=== PATIENT | male | born 1995 | race Caucasian/White ===

== ENCOUNTER 2020-05-23 10:56 | Emergency (ER) | payer OTHER ==
[~2020-05-23] VITALS: Ht 195.6 cm; Wt 99.3 kg
[2020-05-23] MEDS ORDERED: LORAZEPAM INJ 2 MG/ML VIAL IV ONE (11:30)
[2020-05-23] MEDS ORDERED: SODIUM CHLORIDE 0.9% 1000ML 1,000 ML IV STA (11:35)
[2020-05-23] MEDS ORDERED: ONDANSETRON HCL INJ 2MG/ML 2ML 2 MG/ML VIAL ONE (11:44)
[2020-05-23] MEDS ORDERED: SODIUM CHLORIDE 0.9% 1000ML 1,000 ML ONE (11:45)
--- NOTE | 2020-05-23 12:25 | Emergency Department Note ---
History of Present Illnes History of Present Illness Chief Complaint: rizo/n/v/shaking/ anxiety attack History of Present Illness This is a 24 year old male. was doing well prior to this. then woke up stressed out, massive rizo, n/v, shaking, anxiety attack Historian: Patient Arrival Mode: Car History limited by: condition of the patient (normal) Mems Process Engineer Required: No Onset (how long ago): hour(s) (5) Location: generalize Quality: sharp Radiation: Reports non-radiation Severity: severe Onset quality: sudden Duration (how long): hour(s) (5) Timing of current episode: constant Progression: unchanged Chronicity: recurrent (anxiety attack) Context: Denies recent illness, Denies recent surgery, Denies recent immobilization, Denies recent travel, Denies trauma/injury, Denies new medications, Denies hx of DVT/PE, Denies non-compliance w/ medications Relieving factors: none Exacerbating factors: none Associated symptoms: Reports headaches, Reports nausea/vomiting, Reports other (lightheadedness) Treatments prior to arrival: none Past Medical/Family History Physician Review I have reviewed the patient's past medical and family history. Any updates have been documented here. Past Medical History Recent Fever: No Clinical Suspicion of Infectio: No New/Unexplained Change in Ment: No Other Medical History: anxiety Past Surgical History: None Social History Smoking Cessation: Never Smoker Counseling Performed: No Any Illegal Drug Use: No TB Exposure/Symptoms: No Physically hurt or threatened: No Family History Family history of heart diseas: No Other Any Pre-Existing Lines (PICC,: No Is patient up to date on immun: No Review of Systems Review of Systems Constitutional: Reports no symptoms EENTM: Reports no symptoms Cardiovascular: Reports no symptoms Respiratory: Reports no symptoms Gastrointestinal: Reports as per HPI Genitourinary: Reports no symptoms Musculoskeletal: Reports no symptoms Integumentary: Reports no symptoms Neurological: Reports as per HPI, Reports headache Psychological: Reports as per HPI, Reports anxiety Endocrine: Reports no symptoms Hematological/Lymphatic: Reports no symptoms Review of other systems: All other systems negative Physical Exam Related Data Allergies: Coded Allergies: No Known Allergies (Unverified , 05/23/20) Vital signs reviewed: Yes Physical Exam CONSTITUTIONAL Constitutional: Present well-developed, Present well-nourished, Present other (very anxious) HENT HENT: Present normocephalic, Present atraumatic, Present oropharynx clear/m oist, Present nose normal HENT L/R: Present left ext ear normal, Present right ext ear normal EYES Eyes: Reports PERRL, Reports conjunctivae normal NECK Neck: Present ROM normal, Present supple PULMONARY Pulmonary: Present effort normal, Present breath sounds normal CARDIOVASCULAR Cardiovascular: Present regular rhythm, Present heart sounds normal, Present capillary refill normal, Present normal rate GASTROINTESTINAL Abdominal: Present soft, Present nontender, Present bowel sounds normal GENITOURINARY Genitourinary: Present exam deferred SKIN Skin: Present warm, Present dry MUSCULOSKELETAL Musculoskeletal: Present ROM normal NEUROLOGICAL Neurological: Present alert, Present oriented x 3, Present no gross motor or sensory deficits PSYCHOLOGICAL Psychological: Present judgement normal, Present other (very anxious) Results Laboratory Lab results reviewed: Yes (CMP NORMAL) Laboratory comments cmp normal Imaging Imaging results reviewed: Yes Impressions [place] [address] Patient Name: FRANCIS LA MR #: [id number] : 1995 Age/Sex: 24/M Req #: [id number] Adm Physician: Ordered by: CY BHANDARI Report #: [id number] Location: [facility] Room/Bed: Procedure: [id number] HOPD/CT BRAIN WO-HOPD Exam Date: 05/23/20 Exam Time: 1206 REPORT STATUS: Signed EXAMINATION: Head CT HISTORY: 24-year-old male with headache, lightheadedness, tingling sensation in the fingers. COMPARISON: None. TECHNIQUE: Helical axial images of the head were obtained. Reformatted coronal and sagittal images from the axial data. Dose modulation, iterative reconstruction, and/or weight based adjustment of the mA/kV was utilized to reduce the radiation dose to as low as reasonably achievable. Image quality: Motion/streaking artifact limits the evaluation of the skull base and posterior cranial fossa. FINDINGS: Parenchyma: 1. No abnormal densities. 2. No mass or hemorrhage. No CT evidence of acute territorial vascular insult. Extra-axial spaces:No abnormal density. No extra-axial fluid collections Brain volume: Normal for age. Ventricles: No hydrocephalus or displacement. Arteries: No density suggestive of thrombus. Dural sinuses: No abnormal density. Foramen magnum: No mass, Chiari malformation, or basilar invagination. Sella: No obvious mass. Paranasal/mastoid sinuses: Imaged portions unremarkable. Skull/Scalp: No lytic or blastic lesions. No fractures. IMPRESSION: Normal head CT. Signed by: Dr. Luigi Segura M.D. on 05/23/2020 12:34 PM Dictated By: LUIGI SEGURA MD 1234 Transcribed By: CARLOS on 05/23/20 1234 COPY TO: CY BHANDARI~ Critical Care Time Comments teas bottle washer overdose risk [id number] Assessment & Plan Medical Decision Making MDM see below Reassessment Reassessment time: 12:54 Reassessment symptoms resolved Assessment & Plan Final Impression: (1) Stress reaction Depart Disposition: HOME, SELF-snf Meds Active Scripts Lorazepam (ATIVAN) 2 Mg Tablet, 2 MG PO Q8H PRN for ANXIETY, #5 TAB Prov:CY BHANDARI 05/23/20 Ondansetron (ONDANSETRON ODT) 8 Mg Tab.rapdis, 4 MG SL Q4HR PRN for NAUSEA AND VOMITING, #20 TAB Prov:CY BHANDARI 05/23/20 Medications in the ED Lorazepam 1 mg ONCE ONCE IV ; Start 05/23/20 at 11:30; Stop 05/23/20 at 11:50; Status DC Sodium Chloride 1,000 ml @ 1,000 mls/hr Q1H STAT IV Last administered on 05/23/20at 11:53; Admin Dose 1,000 MLS/HR; Start 05/23/20 at 11:35; Stop 05/23/20 at 12:34 Ondansetron HCl 4 mg STK-MED ONCE .ROUTE ; Start 05/23/20 at 11:44; Stop 05/23/20 at 11:42; Status DC Sodium Chloride 1,000 ml @ [facility] ONCE .ROUTE ; Start 05/23/20 at 11:45; Stop 05/23/20 at 11:42; Status DC CY BHANDARI May 23, 2020 12:24
[2020-05-23] MEDS ORDERED: ONDANSETRON HCL INJ 2MG/ML 2ML 2 MG/ML VIAL IV STA (12:33)
--- NOTE | 2020-05-23 12:38 | Diagnostic Imaging Report ---
EXAMINATION: Head CT HISTORY: 24-year-old male with headache, lightheadedness, tingling sensation in the fingers. COMPARISON: None. TECHNIQUE: Helical axial images of the head were obtained. Reformatted coronal and sagittal images from the axial data. Dose modulation, iterative reconstruction, and/or weight based adjustment of the mA/kV was utilized to reduce the radiation dose to as low as reasonably achievable. Image quality: Motion/streaking artifact limits the evaluation of the skull base and posterior cranial fossa. FINDINGS: Parenchyma: 1. No abnormal densities. 2. No mass or hemorrhage. No CT evidence of acute territorial vascular insult. Extra-axial spaces:No abnormal density. No extra-axial fluid collections Brain volume: Normal for age. Ventricles: No hydrocephalus or displacement. Arteries: No density suggestive of thrombus. Dural sinuses: No abnormal density. Foramen magnum: No mass, Chiari malformation, or basilar invagination. Sella: No obvious mass. Paranasal/mastoid sinuses: Imaged portions unremarkable. Skull/Scalp: No lytic or blastic lesions. No fractures. IMPRESSION: Normal head CT. Signed by: Dr. Bernadette Segura M.D. on 05/23/2020 12:34 PM
--- NOTE | 2020-05-23 12:40 | NUR ---
pt states he feels a little better. states he is trying to stay calm.
[2020-05-23] MEDS ORDERED: ATIVAN2 MG PO (13:00)
[2020-05-23] MEDS ORDERED: ONDANSETRON ODT8 MG SL (13:00)
--- NOTE | 2020-05-23 13:29 | NUR ---
pt up walking around, steady gait noted, no slurred speech. pt using bathroom. denies dizziness or pain at this time.
--- OUTSIDE RECORDS SUMMARY | 2020-05-23 14:05 | XMS REPORT | Continuity of Care Document ---
Author Author [facility] t Organization [facility] Address [address] [place] [phone] Phone Unavailable Care Team Providers Care Slabbing Machine Operator Name Role Phone Drew BHANDARI Unavailable Payers Payer Name Policy Type Policy Number Effective Date Expiration Date S ource Problems This patient has no known problems. Allergies, Adverse Reactions, Alerts Allergy Name Allergy Type Status Severity Reaction(s) Onset Date Inacti ve Date Treating Clinician Comments Source No Known Allergies DA Active U 2018-10-03 00:00:00 [facility] Medications This patient has no known medications. Procedures This patient has no known procedures. Results Test Description Test Time Test Comments Results Result Comments Source CT BRAIN WO-HOPD 2020-05-23 12:29:00 [facility] [address] [place], [place] [address] Patient Name: FRANCIS LA MR #: [id number] : 1995 Age/Sex: 24/M Req #: [id number] Adm Physician: Ordered by: CY BHANDARI Report #: [id number] Location: [facility] Room/Bed: Procedure: [id number] HOPD/CT BRAIN -[facility] Exam Date: 05/23/20 Exam Time: 1206 REPORT STATUS: Signed EXAMINATION: Head CT HISTORY: 24-year-old male with headache, lightheadedness, tingling sensation in the fingers. COMPARISON: None. TECHNIQUE: Helical axial images of the head were obtained. Reformatted coronal and sagittal images from the axial data. Dose modulation, iterative reconstruction, and/or weight based adjustment of the mA/kV was utilized to reduce the radiation dose to as low as reasonably achievable. Image quality: Motion/streaking artifact limits the evaluation of the skull base and posterior cranial fossa. FINDINGS: Parenchyma: 1. No abnormal densities. 2. No mass or hemorrhage. No CT evidence of acute territorial vascular insult. Extra-axial spaces:No abnormal density. No extra-axial fluid collections Brain volume: Normal for age. Ventricles: No hydrocephalus or displacement. Arteries: No density suggestive of thrombus. Dural sinuses: No abnormal density. Foramen magnum: No mass, Chiari malformation, or basilar invagination. Sella: No obvious mass. Paranasal/mastoid sinuses: Imaged portions unremarkable. Skull/Scalp: No lytic or blastic lesions. No fractures. IMPRESSION: Normal head CT. Signed by: Dr. Luigi Segura M.D. on 05/23/2020 12:34 PM Dictated By: LUIGI SEGURA MD 1234 Transcribed By: CARLOS on 05/23/20 1234 COPY TO: CY BHANDARI - MRI BRAIN W/O CONTRAST 2018-10-05 12:29:00 FA X: Mackenzie Coppola MD [phone] [place]: B St: ADM FAX: Renata Clark [phone] Name: FRANCIS LA [facility] : 1995 Age/S: 23/M [address] Unit #: [id number] Loc: V.[address] [place] [address] Phys: Renata Justin MD Acct: [id number] Dis Date: Status: ADM IN PHONE #: [phone] Exam Date: 10/05/2018 1106 FAX #: [phone] Reason: New onset seizures. EXAMS: CPT CODE: [id number] MRI BRAIN W/O CONTRAST 19204 HISTORY: New onset seizures. COMPARISON: Head CT from October 03, 2018. MRI brain without contrast: No acute territorial vascular or acute lacunar infarction. No MR evidence for hemorrhage. No extra-axial fluid collections. No white matter lesions. No herniation, hydrocephalus or midline shift. 4th ventricle is midline. Expected flow- voids are noted within the major intracranial vasculature. VII and VIII nerve complex are symmetrical and normal. Mastoid air cells are clear. Sinuses are clear. Intraorbital contents are normal. Midbrain, shanti and medulla are without mass effect. No cerebellar ectopia. Pituitary gland, optic chiasm and corpus callosum are normal. Clivus with normal marrow signal. Symmetrical hippocampi. No mesial temporal sclerosis. No parenchymal mass on this noncontrast study. IMPRESSION: No acute territorial vascular or acute lacunar infarction. No white matter lesions. No mesial temporal sclerosis. at 1229 Reported and signed by: Layton Stock M.D. CC: Mackenzie Bey MD; Renata Justin MD Technologist: Jessica Serna(R)(MR) Trnscrd Date/Time/By: 10/05/2018 (2381) : By: [email or web address] Orig Print D/T: S: 10/05/2018 (4713) PAGE 1 Signed Report DRUGS OF ABUSE SCREEN 2018-10-04 04:32:00 Test Item UA PH DIPSTICK (test code = JERMAN) 7.0 5.0-8.0 URN COCAINE (test code = COCAURN) NEGATIVE <300 ng/mL URN CANNABINOIDS (test code = CANNABURN) POSITIVE <50 ng/mL A This test provides only a preliminary test result. A morespecific alternate chemical method must be used in order toobtain a confirmed analytical result. Gas chromatography/mass spectrometry (GC/MS) is thepreferred confirmatory method. Other chemical confirmationmethods are available. Clinical consideration and professional judgment should be applied to any drug of abusetest result, particularly when preliminary positive resultsare used.Unconfirmed screening results must not be used fornon-medical purposes (e.g., employment testing, legaltesting). URN AMPHETAMINE (test code = AMPHETURN) NEGATIVE <1000 ng/mL URN BARBITURATE (test code = BARBITURN) NEGATIVE <200 ng/mL URN BENZODIAZEPINE (test code = BENZOURN) NEGATIVE <200 ng/mL URN OPIATES (test code = OPIATURN) POSITIVE <300 ng/mL A This test provides only a preliminary test result. A morespecific alternate chemical method must be used in order toobtain a confirmed analytical result. Gas chromatography/mass spectrometry (GC/MS) is thepreferred confirmatory method. Other chemical confirmationmethods are available. Clinical consideration and professional judgment should be applied to any drug of abusetest result, particularly when preliminary positive resultsare used.Unconfirmed screening results must not be used fornon-medical purposes (e.g., employment testing, legaltesting). URN PHENCYCLIDINE (PCP) (test code = PHENCURN) NEGATIVE <25 ng/ mL URN METHADONE (test code = METHAURN) NEGATIVE <300 ng/mL DRUGS OF ABUSE SCREEN [id number] 04:04:00* Test Item Value Reference Range Interpretation Comments UA PH DIPSTICK (test code = JERMAN) 7.0 5.0-8.0 URN COCAINE (test code = COCAURN) <300 ng/mL URN CANNABINOIDS (test code = CANNABURN) <50 ng/mL URN AMPHETAMINE (test code = AMPHETURN) <1000 ng/mL URN BARBITURATE (test code = BARBITURN) <200 ng/mL URN BENZODIAZEPINE (test code = BENZOURN) <200 ng/mL URN OPIATES (test code = OPIATURN) <300 ng/mL URN PHENCYCLIDINE (PCP) (test code = PHENCURN) <25 ng/ mL URN METHADONE (test code = METHAURN) <300 ng/mL BASIC METABOLIC [id number] 03:30:00* Test Item Value Reference Range Interpretation Comments SODIUM (test code = NA) 140 mmol/L 136-145 N POTASSIUM (test code = K) 3.7 mmol/L 3.5-5.1 N CHLORIDE (test code = CL) 107.0 mmol/L 98-107 N CARBON DIOXIDE (test code = CO2) 24.0 mmol/L 21-32 N ANION GAP (test code = GAP) 12.7 10-20 N GLUCOSE (test code = GLU) 119 mg/dL 74-106 H BLOOD UREA NITROGEN (test code = BUN) 12 mg/dL 7-18 N GLOMERULAR FILTRATION RATE (test code = GFR) > 60 mL/min >=60 Estimated GFR by using Modified MDRD formula.Chronic kidney disease is defined as either kidney damageor GFR <60 mL/min/1.73 m2 for >3 months. CREATININE (test code = CREAT) 0.90 mg/dL 0.7-1.3 N BUN/CREATININE RATIO (test code = BUN/CREA) 13.5 10-20 N CALCIUM (test code = CA) 8.6 mg/dL 8.5-10.1 N BASIC METABOLIC [id number] 03:23:00* Test Item Value Reference Range Interpretation Comments SODIUM (test code = NA) 140 mmol/L 136-145 N POTASSIUM (test code = K) 3.7 mmol/L 3.5-5.1 N CHLORIDE (test code = CL) 107.0 mmol/L 98-107 N CARBON DIOXIDE (test code = CO2) mmol/L 21-32 ANION GAP (test code = GAP) 10-20 GLUCOSE (test code = GLU) mg/dL 74-106 BLOOD UREA NITROGEN (test code = BUN) mg/dL 7-18 GLOMERULAR FILTRATION RATE (test code = GFR) mL/min >=60 CREATININE (test code = CREAT) mg/dL 0.7-1.3 BUN/CREATININE RATIO (test code = BUN/CREA) 10-20 CALCIUM (test code = CA) mg/dL 8.5-10.1 CBC W/AUTO [id number] 03:15:00* Test Item Value Reference Range Interpretation Comments WHITE BLOOD CELL (test code = WBC) 8.9 K/mm3 4.5-12.5 N RED BLOOD CELL (test code = RBC) 4.71 mill/mm3 4.0-5.8 N HEMOGLOBIN (test code = HGB) 14.0 gram/dL 13.0-17.5 N HEMATOCRIT (test code = HCT) 41.2 % 42.0-52.0 L MEAN CELL VOLUME (test code = MCV) 87.5 fL 80-98 N MEAN CELL HGB (test code = MCH) 29.7 picogram 27.0-33.0 N MEAN CELL HGB CONCETRATION (test code = MCHC) 34.0 gram/dL 33.0-36. 0 N RED CELL DISTRIBUTION WIDTH (test code = RDW) 12.2 % 11.6-16. 2 N RED CELL DISTRIBUTION WIDTH SD (test code = RDW-SD) 39.1 fL 37 .0-51.0 N PLATELET COUNT (test code = PLT) 219 K/mm3 150-450 N MEAN PLATELET VOLUME (test code = MPV) 10.0 fL 6.7-11.0 N NEUTROPHIL % (test code = NT%) 52.3 % 39.0-69.0 N IMMATURE GRANULOCYTE % (test code = IG%) 0.2 % 0.0-5.0 N LYMPHOCYTE % (test code = LY%) 33.1 % 25.0-55.0 N MONOCYTE % (test code = MO%) 11.0 % 0.0-10.0 H EOSINOPHIL % (test code = EO%) 3.0 % 0.0-5.0 N BASOPHIL % (test code = BA%) 0.4 % 0.0-1.0 N NUCLEATED RBC % (test code = NRBC%) 0.0 % 0-0 N NEUTROPHIL # (test code = NT#) 4.67 K/mm3 1.8-7.7 N IMMATURE GRANULOCYTE # (test code = IG#) 0.02 x10 3/uL 0-0.03 N LYMPHOCYTE # (test code = LY#) 2.96 K/mm3 1.0-5.0 N MONOCYTE # (test code = MO#) 0.98 K/mm3 0-0.8 H EOSINOPHIL # (test code = EO#) 0.27 K/mm3 0.0-0.5 N BASOPHIL # (test code = BA#) 0.04 K/mm3 0.0-0.2 N NUCLEATED RBC # (test code = NRBC#) 0.00 K/mm3 0.0-0.1 N MANUAL DIFF REQUIRED (test code = MDIFF) NO - XR SHOULDER 2 + V [id number] 22:47:00 FAX: Joslyn Bailey DO [place]: B St: REG Name: Barbara YOOFRANCIS ADRYAN [facility] : [birth year] Age/S: 23/M [address] [facility] Unit #: [id number] Loc: [place] [address] Phys: Joslyn Bailey DO Acct: [id number] Dis Date: Status: REG ER PHONE #: [phone] Exam Date: 10/03/20182219 FAX #: [phone] Reason: SHOULDER PAIN EXAMS: CPT CODE: [id number] XR SHOULDER 2 + [place] [address] EXAM: Left shoulder, 3 views; INFORMATION: Trauma; pain after seizure; FINDINGS: Normal shape and structure of the imaged bones; no evidence of fracture or dislocation; no soft tissue abnormalities. IMPRESSION: No evidence of acute osseous trauma or other pathological changes. No radiopaque foreign body. at 0707 Reported and signed by: Joel Alvarez M.D. CC: Joslyn Bailey DO Technologist: LISET Durham RT(R Trnscrd Date/Time/By: 10/03/2018 (4696) : By: EmmieW Orig Print D/T: S: 0 10/03/2018 (9868) PAGE 1 Signed Re port - CT C-SPINE W/O [id number] 21:50:00 Name: FRANCIS LA [facility] : 1995 Age/S: 23 / M [address] Unit #: [id number] Loc: [place], [place] [address] Phys: Drew Bailey DO Acct: [id number] Di s Date: Status: REG ER PHONE #: [phone] Exam Date: 10/03/20182103 FAX #: [phone] Reason: NECK PAIN EXAMS: CPT CODE: [id number] CT C-SPINE W/O CONTRAST [address]5922 EXAM: CT of the cervical spine without contrast; INFORMATION: Status post seizure, neck pa in; TECHNIQUE: CT dose reduction protocol; He lical scans of the cervical spine with sagittal and coronal reconstruction s; FINDINGS: There is good alignment of the cervical spine; vertebral bodies and posterior elements are intact; the height of i ntervertebral discs is maintained. Soft tissue windows show no evidence of epidural or paravertebral hematoma. IMPRESSION: 1. Normal CT scan of the cervical spine; 2. No evidence of acute osseous trauma. at 2150 Reported and signed by: Joel Alvarez M.D. CC: Joslyn Chaudhary DO Technologist:Anat ROLDAN(R); MELVIN Monk CTDI: DLP: Trnscb Date/Time: 10/03/2018 (2149) guero [email or web address] Orig Print D/T: S: 10/03/2018 (2152) CTDI: DLP: PAGE 1 Signed Report BASIC METABOLIC [id number] 21:38:00* Test Item Value Reference Range Interpretation Comments SODIUM (test code = NA) 139 mmol/L 136-145 N POTASSIUM (test code = K) 4.0 mmol/L 3.5-5.1 N CHLORIDE (test code = CL) 106.0 mmol/L 98-107 N CARBON DIOXIDE (test code = CO2) 27.0 mmol/L 21-32 N ANION GAP (test code = GAP) 10.0 10-20 N GLUCOSE (test code = GLU) 91 mg/dL 74-106 N BLOOD UREA NITROGEN (test code = BUN) 13 mg/dL 7-18 N GLOMERULAR FILTRATION RATE (test code = GFR) > 60 mL/min >=60 Estimated GFR by using Modified MDRD formula.Chronic kidney disease is defined as either kidney damageor GFR <60 mL/min/1.73 m2 for >3 months. CREATININE (test code = CREAT) 1.20 mg/dL 0.7-1.3 N BUN/CREATININE RATIO (test code = BUN/CREA) 10.7 10-20 N CALCIUM (test code = CA) 8.9 mg/dL 8.5-10.1 N - XR CHEST 1 [id number] 21:38:00 FAX: Joslyn Bailey DO [place]: B St: REG Name: FRANCIS BRITO [facility] : [birth year] Age/S: 23/M [address] [facility] Unit #: [id number] Loc: [place] [address] Phys: Joslyn Bailey DO Acct: [id number] Dis Date: Status: REG ER PHONE #: [phone] Exam Date: 10/03/20182114 FAX #: [phone] Reason: Seizure EXAMS: CPT CODE: [id number] XR CHEST 1 V [id number] EXAM: Chest X-ray, 1 view; CLINICAL HISTORY: Status post seizure; FINDINGS: The lungs are clear, no infiltrates, no edema; no effusions; no pneumothorax ; normal cardiomediastinal silhouette. IMPRESSION: Normal chest x-ray. at 2137 Reported and signed by: Joel Alvarez M.D. CC: Joslyn Bailey DO Helga hnologist: LISET GONZALES Trnscrd Date/T gunjan/By: 10/03/2018 (2137) : By: TimGRW Orig Print D/T: S: 9 (2141) PAGE 1 Signed Report BASIC METABOLIC [id number] 21:33:00* Test Item Value Reference Range Interpretation Comments SODIUM (test code = NA) 139 mmol/L 136-145 N POTASSIUM (test code = K) 4.0 mmol/L 3.5-5.1 N CHLORIDE (test code = CL) 106.0 mmol/L 98-107 N CARBON DIOXIDE (test code = CO2) mmol/L 21-32 ANION GAP (test code = GAP) 10-20 GLUCOSE (test code = GLU) mg/dL 74-106 BLOOD UREA NITROGEN (test code = BUN) mg/dL 7-18 GLOMERULAR FILTRATION RATE (test code = GFR) mL/min >=60 CREATININE (test code = CREAT) mg/dL 0.7-1.3 BUN/CREATININE RATIO (test code = BUN/CREA) 10-20 CALCIUM (test code = CA) mg/dL 8.5-10.1 [id number] 21:21:00* Test Item Value Reference Range Interpretation Comments GLUBED (test code = GLUBED) 88 mg/dL 74-106 N Performed by certified electronic prepress operator at [facility] CBC W/O [id number] 21:20:00* Test Item Value Reference Range Interpretation Comments WHITE BLOOD CELL (test code = WBC) 9.7 K/mm3 4.5-12.5 N RED BLOOD CELL (test code = RBC) 5.19 mill/mm3 4.0-5.8 N HEMOGLOBIN (test code = HGB) 15.1 gram/dL 13.0-17.5 N HEMATOCRIT (test code = HCT) 45.6 % 42.0-52.0 N MEAN CELL VOLUME (test code = MCV) 87.9 fL 80-98 N MEAN CELL HGB (test code = MCH) 29.1 picogram 27.0-33.0 N MEAN CELL HGB CONCETRATION (test code = MCHC) 33.1 gram/dL 33.0-36. 0 N RED CELL DISTRIBUTION WIDTH (test code = RDW) 12.2 % 11.6-16. 2 N PLATELET COUNT (test code = PLT) 240 K/mm3 150-450 N MEAN PLATELET VOLUME (test code = MPV) 9.7 fL 6.7-11.0 N - CT HEAD/BRAIN W/O [id number] 21:08:00 Name: FRANCIS LA [facility] : 1995 Age/S: 23 / M [address] Unit #: [id number] Loc: [place] [address] Phys: Joslyn Bailey DO Acct: [id number] Dis Date: Status: REG ER PHONE #: [phone] Exam Date: 10/03/20182103 FAX #: [phone] Reason: Seizure EXAMS: CPT CODE: [id number] CT HEAD/BRAIN W/O CONT [id number] EXAM: CT of the head; INFORMATION: Seizure; TECHNIQUE AND FINDINGS: CT dose reduction protocol; The ventricles are symmetric and of normal diameter; normal width of basilar cisterns and sulci; normal kelsey/white matter differentiation; no evidence of intra or extra-axial hemorrhage, mass lesion or midline shift. Bone windows show no abnormalities. IMPRESSION: Normal CT scan of the head. Electronically Signed by Kimberly Alvarez on 0 10/03/2018 at 2107 Reported and signed by: Leonard Alvarez M.D. CC: Joslyn Bailey DO Technologist:Anat Zhang RT(R); MELVIN Monk CTDI: DLP: Trnscb Date/Time: 10/03/2018 (2107) Dayne Orig Print D/T: S: 10/03/2018 (2110) CTDI: DLP: PAGE 1 Signed Report
[2020-05-23 14:13] VITALS: BP 135/68
== END 2020-05-23 14:16 | disposition home or self-care (01) ==
LOC: FSED 11:30
DX: F43.9 Reaction to severe stress, unspecified (principal); R51 Headache
CPT/HCPCS: 70450; 80053; 99284; J2060; J2405; J7030